=== PATIENT | male | born 1960 | race Two or more races ===

== ENCOUNTER 2016-04-25 13:52 | Emergency (ER) | payer MEDICARE, OTHER ==
[2016-04-25 15:19] VITALS: TEMP 98
[2016-04-25] MEDS ORDERED: LIDOCAINE/EPINEPHR/TETRACAINE 5 ML BOTTLE TOPICAL STA (15:41)
--- NOTE | 2016-04-25 16:09 | ED ---
General Adult HPI - General Chief complaint: Head Injury Stated complaint: Fall/Head Lac Time Seen by Provider: 04/25/16 15:33 Source: family, RN notes reviewed Mode of arrival: wheelchair Limitations: altered mental status - History of Present Illness Initial comments: Chief complaint history of present illness a 55-year-old mentally impaired male who tripped while going into a bowling alley now has a laceration approximately 1 cm over the inner left eyebrow. No reported loss of consciousness. He has not had any vomiting since the incident. No seizure activity. The patient is not at all cooperative. - Related Data Home Medications Medication Instructions Recorded Confirmed Ascorbic Acid [Vitamin C] 500 mg PO DAILY 04/25/16 04/25/16 Aspirin 81 mg PO DAILY 04/25/16 04/25/16 Cholecalciferol [Vitamin D3] 2,000 unit PO DAILY 04/25/16 04/25/16 EPINEPHrine (Auto Inject) [Epipen] 0.3 mg IM ONCE PRN 04/25/16 04/25/16 Gabapentin [Neurontin] 400 mg PO TID 04/25/16 04/25/16 Levothyroxine Sodium [Synthroid] 75 mcg PO DAILY 04/25/16 04/25/16 Polyethylene Glycol 3350 [Miralax] 17 gm PO DAILY PRN 04/25/16 04/25/16 Propylene Glycol/Peg 400/Pf 1 dropper BOTH EYES DAILY 04/25/16 04/25/16 [Systane 0.3-0.4% Eye Drops] Sennosides/Docusate Sodium [Dok 1 tab PO DAILY PRN 04/25/16 04/25/16 Plus Tablet] carBAMazepine [carBAMazepine ER] 200 mg PO TID 04/25/16 04/25/16 Allergies Allergy/AdvReac Type Severity Reaction Status Date / Time bee pollen Allergy Anaphylaxis Verified 04/25/16 15:39 Review of Systems ROS Statement: Those systems with pertinent positive or pertinent negative responses have been documented in the HPI. Review of systems. Limited because the patient is unable to answer in any meaningful way. But per care workers who know him well he has not had any significant change in the way normal days and then the fact that he has a laceration on his left eyebrow and does not like to be touched. Past medical problems pneumonia, seizure disorder, hypothyroidism. Significantly severe developmental delay with severe MR. ALLERGIES to bee pollen. No apparent surgical history. Family history unknown. ROS Other: All systems not noted in ROS Statement are negative. Past Medical History Past Medical History: Pneumonia, Seizure Disorder, Thyroid Disorder Additional Past Medical History / Comment(s): developmental delays, cerebral palsy History of Any Multi-Drug Resistant Organisms: None Reported Past Surgical History: No Surgical Hx Reported Past Psychological History: No Psychological Hx Reported Smoking Status: Never smoker Past Alcohol Use History: None Reported Past Drug Use History: None Reported General Exam - General Exam Comments Initial Comments: General: The patient is awake and alert, mentally challenged. Very difficult to examine because of his difficulties. He does present with once Amer laceration over the left eyebrow. Vital signs temp 98.0 pulse 63 respiratory 24 pulse ox 93% room air blood pressure 115/80. Eye: Pupils are equal, round and reactive to light, extra-ocular movements are intact ; there is normal conjunctiva bilaterally. No signs of icterus. Eye laceration , 1 cm over left eyebrow. Ears, nose, mouth and throat: There are moist mucous membranes . Neck: Neck appears supple. Patient otherwise does not answer questions Musculoskeletal: Normal ROM, no tenderness, There is no pedal edema. There is no calf tenderness or swelling. Moving all extremities. No evidence of any deformities. Neurological: Severely mentally challenged. In general poor coordination. Patient tripped healthcare workers at bedside another patient well states he appears to be normal to them neurologically. Limitations: altered mental status Course Vital Signs 04/25/16 15:11 Temperature 98.0 F Pulse Rate 63 Respiratory 24 Rate Blood Pressure 115/80 O2 Sat by Pulse 93 L Oximetry Procedures - Procedures Initial comment: Procedure; sterile technique. 1 cm laceration over left eyebrow. Area was cleaned with Betadine and normal saline. It was anesthetized with the use of LET. Good anesthetic effect was obtained. The patient was held still and 2 sutures were placed of 4-0 nylon simple pattern to close the wound with good hemostasis. Patient will have his tetanus updated. Sutures out in [address] Arana Disposition Clinical Impression: Laceration of face Disposition: HOME SELF-CARE Condition: Good Instructions: Laceration (ED) Additional Instructions: Return in 5 days for suture to remove. Report any acute mental changes. Time of Disposition: 16:27
[2016-04-25] MEDS ORDERED: DIPH,PERTUS(ACELL)TETVAC-LF 0.5 ML VIAL IM ONE (16:24)
[2016-04-25 16:50] VITALS: BP 134/79; PULSE 77; RESP 18
== END 2016-04-25 16:49 | disposition home or self-care (01) ==
LOC: EC 13:52
DX: S01.112A Laceration without foreign body of left eyelid and periocular area, initial encounter (principal); E07.9 Disorder of thyroid, unspecified; G40.909 Epilepsy, unspecified, not intractable, without status epilepticus; R62.50 Unspecified lack of expected normal physiological development in childhood; Z23 Encounter for immunization; Z87.01 Personal history of pneumonia (recurrent); Z79.82 Long term (current) use of aspirin; Z79.899 Other long term (current) drug therapy; Z91.030 Bee allergy status; W01.0XXA Fall on same level from slipping, tripping and stumbling without subsequent striking against object, initial encounter
CPT/HCPCS: 12011; 90471; 90715; 99283

== ENCOUNTER 2017-07-30 16:50 | Inpatient (IN) | payer MEDICARE, OTHER ==
[2017-07-30 17:00] LABS: Glucose,Whole Blood 75 mg/dL (75-99)
[2017-07-30] MEDS ORDERED: SODIUM CHLORIDE 0.9% 1,000 ML IV ONE ×2 (17:33→20:13)
[2017-07-30] MEDS ORDERED: ACETAMINOPHEN TAB 500 MG TAB PO STA (17:34)
[2017-07-30] MEDS ORDERED: IBUPROFEN 600 MG TAB PO STA (17:34)
--- NOTE | 2017-07-30 17:56 | ED ---
Altered Mental Status HPI - General Chief Complaint: Altered Mental Status Stated Complaint: SEIZURES Time Seen by Provider: 07/30/17 16:55 Source: EMS, RN notes reviewed, old records reviewed Mode of arrival: EMS Limitations: altered mental status - History of Present Illness Initial Comments: 57-year-old male with a history of cerebral palsy, seizure disorder, developmental delay, hyperlipidemia. Deformity and scoliosis. He presents today with history of gait disturbance and fever. Apparently patient was at his day program and was having difficulty ambulating. Patient normally does not need any help with walking but had to require 2 people to help him ambulate to the bus and throughout school today. The retail business analyst stated that he was not sitting up straight on the bus to return home. He returned to his adult care facility they noted that he was having the gait disturbances and was not responding to them is in his usual manner. Patient caregiver reports there was a history of influenza B at his day program the past week. They also noted that his urine has been dark. Patient is a poor historian. At this time patient's guardian reports that he is at baseline in regards to his mentation and speech. - Related Data Home Medications Medication Instructions Recorded Confirmed Ascorbic Acid [Vitamin C] 500 mg PO DAILY 04/25/16 07/30/17 Aspirin 81 mg PO DAILY 04/25/16 07/30/17 Cholecalciferol [Vitamin D3] 2,000 unit PO DAILY 04/25/16 07/30/17 EPINEPHrine (Auto Inject) [Epipen] 0.3 mg IM ONCE PRN 04/25/16 07/30/17 Gabapentin [Neurontin] 400 mg PO TID 04/25/16 07/30/17 Levothyroxine Sodium [Synthroid] 75 mcg PO DAILY 04/25/16 07/30/17 Polyethylene Glycol 3350 [Miralax] 17 gm PO DAILY 04/25/16 07/30/17 Propylene Glycol/Peg 400/Pf 1 dropper BOTH EYES DAILY 04/25/16 07/30/17 [Systane 0.3-0.4% Eye Drops] Betamethasone Dipropionate 1 applic TOPICAL DAILY PRN 07/30/17 07/30/17 [Diprolene AF 0.05% Cream] Escitalopram [Lexapro] 10 mg PO DAILY 07/30/17 07/30/17 LORazepam [Ativan] 0.5 mg PO BID PRN 07/30/17 07/30/17 carBAMazepine [TEGretol] 200 mg PO TID 07/30/17 07/30/17 Allergies Allergy/AdvReac Type Severity Reaction Status Date / Time bee pollen Allergy Anaphylaxis Verified 07/30/17 17:14 Review of Systems ROS Statement: Those systems with pertinent positive or pertinent negative responses have been documented in the HPI. ROS Other: All systems not noted in ROS Statement are negative. Past Medical History Past Medical History: Hyperlipidemia, Pneumonia, Seizure Disorder, Thyroid Disorder Additional Past Medical History / Comment(s): developmental delays, cerebral palsy, impulse control disorder, History of Any Multi-Drug Resistant Organisms: None Reported Past Surgical History: No Surgical Hx Reported Past Psychological History: No Psychological Hx Reported Smoking Status: Never smoker Past Alcohol Use History: None Reported Past Drug Use History: None Reported General Exam - General Exam Comments Initial Comments: 57-year-old male with history of cerebral palsy. Patient is reportedly at his baseline according to caregiver. He is not oriented to date and time and place. He continues to point to [place] and talks about golf. Limitations: altered mental status General appearance: in no apparent distress Head exam: Present: atraumatic, normocephalic, normal inspection Eye exam: Present: normal appearance, PERRL, EOMI. Absent: scleral icterus, conjunctival injection, periorbital swelling ENT exam: Present: normal exam, mucous membranes moist Neck exam: Present: normal inspection. Absent: tenderness, meningismus, lymphadenopathy Respiratory exam: Present: normal lung sounds bilaterally. Absent: respiratory distress, wheezes, rales, rhonchi, stridor Cardiovascular Exam: Present: regular rate, normal rhythm, normal heart sounds. Absent: systolic murmur, diastolic murmur, rubs, gallop, clicks GI/Abdominal exam: Present: soft, normal bowel sounds. Absent: distended, tenderness, guarding, rebound, rigid Extremities exam: Present: normal inspection, full ROM, normal capillary refill. Absent: tenderness, pedal edema, joint swelling, calf tenderness Back exam: Present: normal inspection Neurological exam: Present: alert, oriented X3, CN II-XII intact Psychiatric exam: Present: normal affect, normal mood Skin exam: Present: warm, dry, intact, normal color. Absent: rash Course Vital Signs 07/30/17 07/30/17 16:57 19:28 Temperature 103.1 F H 102.6 F H Pulse Rate 93 84 Respiratory 20 18 Rate Blood Pressure 140/76 106/60 O2 Sat by Pulse 100 Oximetry Medical Decision Making - Medical Decision Making 57-year-old male presents emergency Department via EMS with empty can services, fever, foul odor the urine. Patient was found to have urinary tract infection over 180 white blood cells in the urine. Given Levaquin. Lactic acid is normal. Blood culture obtained. White blood cell count elevated at 13,000. Patient meet sepsis criteria with fever 103, heart rate greater than 90. Given Motrin and Tylenol, 2 L bolus. Start on maintenance fluids. Patient will be admitted at this time for further evaluation. He does live in an adult [place] [facility]. Patient is a full code. Patient has returned to his normal mental status according to caregiver at this time. Computed tomography scan did show evidence of mild hydrocephalous. Unable to note this is related to old CTs. Does have a history of cerebral palsy and mental retardation. - Lab Data Result diagrams: 07/30/17 18:22 07/30/17 18:22 Lab Results 07/30/17 07/30/17 07/30/17 Range/Units 16:58 18:22 18:22 WBC 13.0 H (3.8-10.6) k/uL RBC 4.20 L (4.30-5.90) m/uL Hgb 13.2 (13.0-17.5) gm/dL Hct 38.5 L (39.0-53.0) % MCV 91.6 (80.0-100.0) fL MCH 31.4 (25.0-35.0) pg MCHC 34.3 (31.0-37.0) g/dL RDW 12.4 (11.5-15.5) % Plt Count 226 (150-450) k/uL Neutrophils % 90 % Lymphocytes % 3 % Monocytes % 5 % Eosinophils % 0 % Basophils % 0 % Neutrophils # 11.7 H (1.3-7.7) k/uL Lymphocytes # 0.4 L (1.0-4.8) k/uL Monocytes # 0.7 (0-1.0) k/uL Eosinophils # 0.0 (0-0.7) k/uL Basophils # 0.0 (0-0.2) k/uL PT (9.0-12.0) sec INR (<1.2) APTT (22.0-30.0) sec Sodium (137-145) mmol/L Potassium (3.5-5.1) mmol/L Chloride (98-107) mmol/L Carbon Dioxide (22-30) mmol/L Anion Gap mmol/L BUN (9-20) mg/dL Creatinine (0.66-1.25) mg/dL Est GFR (CKD-EPI)AfAm (>60 ml/min/1.73 sqM) Est GFR (CKD-EPI)NonAf (>60 ml/min/1.73 sqM) Glucose (74-99) mg/dL POC Glucose (mg/dL) 75 (75-99) mg/dL POC Glu Analytical Consultant ID Sangita Rodriguez Plasma Lactic Acid Radhames (0.7-2.0) mmol/L Calcium (8.4-10.2) mg/dL Total Bilirubin (0.2-1.3) mg/dL AST (17-59) U/L ALT (21-72) U/L Alkaline Phosphatase (38-126) U/L Total Creatine Kinase 84 (55-170) U/L CK-MB (CK-2) 0.6 (0.0-2.4) ng/mL CK-MB (CK-2) Rel Index 0.7 Troponin I <0.012 (0.000-0.034) ng/mL Total Protein (6.3-8.2) g/dL Albumin (3.5-5.0) g/dL Urine Color Urine Appearance (Clear) Urine pH (5.0-8.0) Ur Specific Antonito (1.001-1.035) Urine Protein (Negative) Urine Glucose (UA) (Negative) Urine Ketones (Negative) Urine Blood (Negative) Urine Nitrite (Negative) Urine Bilirubin (Negative) Urine Urobilinogen (<2.0) mg/dL Ur Leukocyte Esterase (Negative) Urine RBC (0-5) /hpf Urine WBC (0-5) /hpf Urine WBC Clumps (None) /hpf Ur Squamous Epith Cells (0-4) /hpf Amorphous Sediment (None) /hpf Urine Bacteria (None) /hpf Hyaline Casts (0-2) /lpf Urine Mucus (None) /hpf Influenza Type A RNA (Not Detectd) Influenza Type B (PCR) (Not Detectd) 07/30/17 07/30/17 07/30/17 Range/Units 18:22 18:22 18:22 WBC (3.8-10.6) k/uL RBC (4.30-5.90) m/uL Hgb (13.0-17.5) gm/dL Hct (39.0-53.0) % MCV (80.0-100.0) fL MCH (25.0-35.0) pg MCHC (31.0-37.0) g/dL RDW (11.5-15.5) % Plt Count (150-450) k/uL Neutrophils % % Lymphocytes % % Monocytes % % Eosinophils % % Basophils % % Neutrophils # (1.3-7.7) k/uL Lymphocytes # (1.0-4.8) k/uL Monocytes # (0-1.0) k/uL Eosinophils # (0-0.7) k/uL Basophils # (0-0.2) k/uL PT 9.7 (9.0-12.0) sec INR 1.0 (<1.2) APTT 22.5 (22.0-30.0) sec Sodium 139 (137-145) mmol/L Potassium 3.9 (3.5-5.1) mmol/L Chloride 97 L (98-107) mmol/L Carbon Dioxide 28 (22-30) mmol/L Anion Gap 14 mmol/L BUN 10 (9-20) mg/dL Creatinine 0.70 (0.66-1.25) mg/dL Est GFR (CKD-EPI)AfAm >90 (>60 ml/min/1.73 sqM) Est GFR (CKD-EPI)NonAf >90 (>60 ml/min/1.73 sqM) Glucose 116 H (74-99) mg/dL POC Glucose (mg/dL) (75-99) mg/dL POC Glu Analytical Consultant ID Plasma Lactic Acid Radhames (0.7-2.0) mmol/L Calcium 8.8 (8.4-10.2) mg/dL Total Bilirubin 0.3 (0.2-1.3) mg/dL AST 17 (17-59) U/L ALT 18 L (21-72) U/L Alkaline Phosphatase 103 (38-126) U/L Total Creatine Kinase (55-170) U/L CK-MB (CK-2) (0.0-2.4) ng/mL CK-MB (CK-2) Rel Index Troponin I (0.000-0.034) ng/mL Total Protein 7.2 (6.3-8.2) g/dL Albumin 4.1 (3.5-5.0) g/dL Urine Color Urine Appearance (Clear) Urine pH (5.0-8.0) Ur Specific Antonito (1.001-1.035) Urine Protein (Negative) Urine Glucose (UA) (Negative) Urine Ketones (Negative) Urine Blood (Negative) Urine Nitrite (Negative) Urine Bilirubin (Negative) Urine Urobilinogen (<2.0) mg/dL Ur Leukocyte Esterase (Negative) Urine RBC (0-5) /hpf Urine WBC (0-5) /hpf Urine WBC Clumps (None) /hpf Ur Squamous Epith Cells (0-4) /hpf Amorphous Sediment (None) /hpf Urine Bacteria (None) /hpf Hyaline Casts (0-2) /lpf Urine Mucus (None) /hpf Influenza Type A RNA Not Detected (Not Detectd) Influenza Type B (PCR) Not Detected (Not Detectd) 07/30/17 07/30/17 Range/Units 18:22 19:57 WBC (3.8-10.6) k/uL RBC (4.30-5.90) m/uL Hgb (13.0-17.5) gm/dL Hct (39.0-53.0) % MCV (80.0-100.0) fL MCH (25.0-35.0) pg MCHC (31.0-37.0) g/dL RDW (11.5-15.5) % Plt Count (150-450) k/uL Neutrophils % % Lymphocytes % % Monocytes % % Eosinophils % % Basophils % % Neutrophils # (1.3-7.7) k/uL Lymphocytes # (1.0-4.8) k/uL Monocytes # (0-1.0) k/uL Eosinophils # (0-0.7) k/uL Basophils # (0-0.2) k/uL PT (9.0-12.0) sec INR (<1.2) APTT (22.0-30.0) sec Sodium (137-145) mmol/L Potassium (3.5-5.1) mmol/L Chloride (98-107) mmol/L Carbon Dioxide (22-30) mmol/L Anion Gap mmol/L BUN (9-20) mg/dL Creatinine (0.66-1.25) mg/dL Est GFR (CKD-EPI)AfAm (>60 ml/min/1.73 sqM) Est GFR (CKD-EPI)NonAf (>60 ml/min/1.73 sqM) Glucose (74-99) mg/dL POC Glucose (mg/dL) (75-99) mg/dL POC Glu Analytical Consultant ID Plasma Lactic Acid Radhames 1.5 (0.7-2.0) mmol/L Calcium (8.4-10.2) mg/dL Total Bilirubin (0.2-1.3) mg/dL AST (17-59) U/L ALT (21-72) U/L Alkaline Phosphatase (38-126) U/L Total Creatine Kinase (55-170) U/L CK-MB (CK-2) (0.0-2.4) ng/mL CK-MB (CK-2) Rel Index Troponin I (0.000-0.034) ng/mL Total Protein (6.3-8.2) g/dL Albumin (3.5-5.0) g/dL Urine Color Yellow Urine Appearance Cloudy (Clear) Urine pH 7.5 (5.0-8.0) Ur Specific Antonito 1.013 (1.001-1.035) Urine Protein 1+ H (Negative) Urine Glucose (UA) Negative (Negative) Urine Ketones Negative (Negative) Urine Blood Small H (Negative) Urine Nitrite Negative (Negative) Urine Bilirubin Negative (Negative) Urine Urobilinogen <2.0 (<2.0) mg/dL Ur Leukocyte Esterase Moderate H (Negative) Urine RBC 18 H (0-5) /hpf Urine WBC 109 H (0-5) /hpf Urine WBC Clumps Few H (None) /hpf Ur Squamous Epith Cells 1 (0-4) /hpf Amorphous Sediment Few H (None) /hpf Urine Bacteria Many H (None) /hpf Hyaline Casts 1 (0-2) /lpf Urine Mucus Rare H (None) /hpf Influenza Type A RNA (Not Detectd) Influenza Type B (PCR) (Not Detectd) 07/30/17 18:05 EKG shows normal sinus rhythm normal EKG. Ventricular rate of 89 bpm. MS interval is 128 ms. QRS duration is 94. 364/442 ms. - Radiology Data Radiology results: report reviewed No acute intracranial hemorrhage or midline shift seen. They suspected mild hydrocephalus in mild to moderate nonspecific white matter changes likely on the basis of chronic small vessel ischemic change. Correlation with old outside CT or MRI would be beneficial. Chest x-rays negative for any acute process. Disposition Clinical Impression: UTI (urinary tract infection), Sepsis, Cerebral palsy, Mental retardation, Gait disturbance Disposition: HOME SELF-CARE Condition: Good Is patient prescribed a controlled substance at d/c from ED?: No If prescribed controlled substance>3 days was MAPS reviewed?: No When asked, does pt state using other controlled substances?: No Referrals: Gilberto Turk MD [Primary Care Provider] - 1-2 days
[2017-07-30] MEDS: SODIUM CHLORIDE 0.9% 1,000 ML IV ONE ×2 (18:26→22:57)
[2017-07-30 18:35] LABS: Basophils % (A) 0 %; Eosinophils % (A) 0 %; HCT 38.5 % (39.0-53.0); HGB 13.2 gm/dL (13.0-17.5); Lymphocytes # (A) 0.4 k/uL (1.0-4.8); Lymphocytes % (A) 3 %; MCH 31.4 pg (25.0-35.0); MCHC 34.3 g/dL (31.0-37.0); MCV 91.6 fL (80.0-100.0); Mean Platelet Volume 7.5; Monocytes # (A) 0.7 k/uL (0-1.0); Monocytes % (A) 5 %; Neutrophils # (A) 11.7 k/uL (1.3-7.7); Neutrophils % (A) 90 %; Platelet Count 226 k/uL (150-450); RDW 12.4 % (11.5-15.5)
[2017-07-30 18:45] LABS: Partial Thromboplastin Time 22.5 sec (22.0-30.0); Prothrombin Time 9.7 sec (9.0-12.0)
[2017-07-30 18:47] LABS: ALT 18 U/L (21-72); AST 17 U/L (17-59); Albumin 4.1 g/dL (3.5-5.0); Alkaline Phosphatase 103 U/L (38-126); Anion Gap 14 mmol/L; Blood Urea Nitrogen 10 mg/dL (9-20); Calcium 8.8 mg/dL (8.4-10.2); Carbon Dioxide 28 mmol/L (22-30); Chloride 97 mmol/L (98-107); Glucose 116 mg/dL (74-99); Potassium 3.9 mmol/L (3.5-5.1); Sodium 139 mmol/L (137-145); Total Bilirubin 0.3 mg/dL (0.2-1.3); Total Protein 7.2 g/dL (6.3-8.2)
[2017-07-30 18:58] LABS: Creatine Kinase 84 U/L (55-170)
[2017-07-30 19:11] LABS: Creatine Kinase MB 0.6 ng/mL (0.0-2.4); Troponin I <0.012 ng/mL (0.000-0.034)
--- NOTE | 2017-07-30 19:17 | CT ---
EXAMINATION TYPE: CT brain wo con DATE OF EXAM: 07/30/2017 HISTORY: Seizure CT DLP: 883.2 mGycm. Automated Exposure Control for Dose Reduction was Utilized. TECHNIQUE: CT scan of the head is performed without contrast. COMPARISON: None. FINDINGS: There is no acute intracranial hemorrhage or midline shift identified. There is slight pr ominence of ventricular system out of proportion to degree of sulcal effacement. Fourth ventricle is not dilated. There is low-attenuation in the periventricular white matter consistent with chronic sma ll vessel ischemic change. Prominent Soft tissue density deep bilateral expiratory canals likely refl ects cerumen. Correlate clinically. The globes are intact and the visualized sinuses are clear. IMPRESSION: No acute intracranial hemorrhage or midline shift. There is suspected mild hydrocephalu s and mild to moderate nonspecific white matter changes likely on basis of product of chronic small v essel ischemic change. Correlation with old outside CT or MRI would be beneficial.
--- NOTE | 2017-07-30 19:18 | XR ---
EXAMINATION TYPE: XR chest 2V DATE OF EXAM: 07/30/2017 COMPARISON: NONE HISTORY: Altered mental status and weakness. TECHNIQUE: Frontal and lateral views of the chest are obtained. FINDINGS: Elevated left hemidiaphragm is present. There is no focal air space opacity, pleural effusi on, or pneumothorax seen. The cardiac silhouette size is within normal limits. Underlying scoliosis is seen. IMPRESSION: No acute cardiopulmonary process.
[2017-07-30] MEDS ORDERED: LEVOFLOXACIN 750MG-D5W PMX 750 MG in DEXTROSE/WATER 1 150ML.BAG IVPB STA (19:56)
[2017-07-30 20:19] LABS: Amorphous Sediment,Urine Few /hpf; Appearance,Urine Cloudy (Clear); Bacteria,Urine Many /hpf; Bilirubin,Urine Negative (Negative); Blood,Urine Small (Negative); Color,Urine Yellow; Glucose,Urine (UA) Negative (Negative); Hyaline Casts,Urine 1 /lpf (0-2); Ketones,Urine Negative (Negative); Leukocyte Esterase,Urine Moderate (Negative); Mucus,Urine Rare /hpf; Nitrite,Urine Negative (Negative); PH, Urine 7.5 (5.0-8.0); Protein,Urine 1+ (Negative); RBC,Urine 18 /hpf (0-5); Specific Gravity,Urine 1.013 (1.001-1.035); Squamous Epithelial Cell,Urine 1 /hpf (0-4); Urobilinogen,Urine <2.0 mg/dL (<2.0); WBC,Urine 109 /hpf (0-5)
[2017-07-30] MEDS ORDERED: ACETAMINOPHEN TAB 325 MG TAB PO PRN (20:29)
[2017-07-30] MEDS ORDERED: NALOXONE 0.4 MG/ML 1 ML VIAL IV PRN (20:29)
[2017-07-30] MEDS ORDERED: IBUPROFEN 400 MG TAB PO PRN (20:29)
[2017-07-30] MEDS ORDERED: KETOROLAC 30 MG/ML 1 ML VIAL IVP PRN (20:29)
[2017-07-30] MEDS ORDERED: BETAMETHASONE DIPROPIONATE 0.05% CREAM 15 GM TUBE TOPICAL PRN (20:37)
[2017-07-30] MEDS ORDERED: LORazepam 0.5 MG TAB PO PRN (20:37)
[2017-07-30 21:41] VITALS: BMI 19.3
[2017-07-30] MEDS: GABAPENTIN 400 MG CAP PO SCH (22:56)
[2017-07-30] MEDS: carBAMazepine 200 MG TAB PO SCH (22:56)
[2017-07-30] MEDS: SODIUM CHLORIDE 0.9% 1,000 ML IV SCH (23:09)
[2017-07-31] MEDS: SODIUM CHLORIDE 0.9% 1,000 ML IV SCH ×3 (04:27→22:47)
[2017-07-31] MEDS: PANTOPRAZOLE 40 MG/10 ML VIAL IV SCH (09:22)
[2017-07-31] MEDS: cefTRIAXone IN SWFI 1,000 MG/10 ML SYRINGE IVP SCH (09:23)
[2017-07-31] MEDS: POLYETHYLENE GLYCOL 3350 17 GM POWD.PACK PO SCH (09:23)
[2017-07-31] MEDS: GABAPENTIN 400 MG CAP PO SCH ×3 (09:23→20:10)
[2017-07-31] MEDS: ASPIRIN 81 MG PO SCH (09:24)
[2017-07-31] MEDS: carBAMazepine 200 MG TAB PO SCH ×3 (09:24→20:10)
[2017-07-31] MEDS: CHOLECALCIFEROL 1,000 UNIT TAB PO SCH (09:24)
[2017-07-31] MEDS: LEVOTHYROXINE 75 MCG TAB PO SCH (09:25)
[2017-07-31] MEDS: ASCORBIC ACID 500 MG TAB PO SCH (09:25)
[2017-07-31] MEDS: ESCITALOPRAM 10 MG TAB PO SCH (09:25)
--- NOTE | 2017-07-31 10:28 | US ---
EXAMINATION TYPE: US kidneys/renal and bladder DATE OF EXAM: 07/31/2017 COMPARISON: NONE CLINICAL HISTORY: Pain. EXAM MEASUREMENTS: Right Kidney: 10.7 x 5.4 x 4.5 cm Left Kidney: 11.5 x 4.7 x 4.7 cm Patient has cerebral palsy and is intellectually disabled. He was uncooperative with examiner. Limite d evaluation due to technical difficulties. Incidental finding of gallstones. Right Kidney: portion of mid and entire inferior pole obscured by bowel gas Left Kidney: Inferior pole obscured by bowel gas Bladder: diverticulum noted, dependant debris also noted Bilateral Jets seen: unable to see jets due to patient movement There is no evidence for hydronephrosis at this point in time. No nephrolithiasis is seen. No melida s are identified. The urinary bladder Demonstrates dependent debris as well as diverticulum. IMPRESSION: 1.The urinary bladder Demonstrates dependent debris as well as diverticulum.
[2017-07-31] MEDS: ARTIFICIAL TEARS-HYPROMELLOSE DROPS 15 ML BTL BOTH EYES SCH (12:15)
--- NOTE | 2017-07-31 13:48 | P.HPIM ---
History of Present Illness H&P Date: 07/31/17 Chief Complaint: Mental status change This is a 57-year-old gentleman with known cerebral palsy seizure disorder hypothyroidism hyperlipidemia and has significant impairment in intellect and communication skills, admitted to emergency room secondary to mental status changes. Not much is known regarding falls or appetite or seizures and comes in from jail,. He was febrile in the ER. He comes from adult foster care facility when he was noted to have less interaction, dark urine. Per guardian speech and mentation are at baseline. According to staff, she was treated with influenza B a week prior to admission In the emergency room, urinalysis was positive for pyuria, bladder ultrasound shows no hydronephrosis stones no masses, bladder demonstrate dependent debris as well as diverticulum CAT scan of the brain shows mild hydrocephalus, chronic ischemic change the comparison for review, chest x-ray shows elevated left hemidiaphragm, no focal airspace disease pleural effusion or pneumothorax, no cardiomegaly, scoliosis noted EKG shows normal sinus rhythm normal EKG. Laboratories WBC of 13.0 CO2 of 28 normal creatinine of 0.7 sodium 139 influenza test negative. T-max in the ER 103.1 Review of Systems ROS unobtainable: due to mental status Constitutional: Reports as per HPI Ears, nose, mouth and throat: Reports as per HPI Cardiovascular: Reports as per HPI Respiratory: Reports as per HPI Gastrointestinal: Reports as per HPI Genitourinary: Reports as per HPI Musculoskeletal: Reports as per HPI Neurological: Reports as per HPI, Reports gait dysfunction, Denies aphasia, Denies ataxia, Denies balance difficulties, Denies burning pain, Denies change in mentation, Denies change in smell/taste, Denies change in speech, Denies confusion, Denies convulsions, Denies double vision, Denies head injury, Denies headaches, Denies hearing difficulties, Denies lack of coordination, Denies loss of vision, Denies memory loss, Denies migraines, Denies motor disturbance, Denies numbness, Denies paralysis, Denies paresthesias, Denies seizures, Denies sensory deficit, Denies spasticity, Denies syncope, Denies tic, Denies tingling , Denies transient paralysis, Denies tremors, Denies vertigo, Denies weakness, Denies visual changes Psychiatric: Reports as per HPI, Denies anhedonia, Denies anxiety, Denies anxiety attacks, Denies change in appetite, Denies change in libido, Denies change in sleep habits, Denies confusion, Denies depression, Denies difficulty concentrating, Denies disorientation, Denies hallucinations, Denies hopelessness , Denies hypersomnia, Denies insomnia, Denies irritability, Denies memory loss, Denies mood swings, Denies paranoia, Denies sadness/tearfulness, Denies sleep disturbances, Denies suicidal ideation Endocrine: Reports as per HPI, Denies cold intolerance, Denies deepening of the voice, Denies excessive sweating, Denies excessive thirst, Denies fatigue, Denies flushing, Denies heat intolerance, Denies high blood sugars, Denies increase in ring/shoe/hat size, Denies low blood sugars, Denies nocturia, Denies palpitations, Denies polydipsia, Denies polyphagia, Denies polyuria, Denies proptosis, Denies recent glucocorticoid use, Denies thyroid mass, Denies weight change Hematologic/Lymphatic: Reports as per HPI Allergic/Immunologic: Reports as per HPI, Denies allergic rhinitis, Denies anaphylaxis, Denies angioedema, Denies gluten intolerance, Denies persistent infections, Denies seasonal allergies, Denies urticaria, Denies wheezing Past Medical History Past Medical History: Hyperlipidemia, Musculoskeletal Disorder, Pneumonia, Seizure Disorder, Skin Disorder, Thyroid Disorder Additional Past Medical History / Comment(s): developmental delays, cerebral palsy, impulse control disorder, Dermatitis, varus deformity, Last seizure was September 15, 2015, photosensitivity from medications, Dental work under sedation, seborrheic ketosis, gait disturbance, Pes Cavus, [place] [facility], Scoliosis, Peridontitis. History of Any Multi-Drug Resistant Organisms: None Reported Past Surgical History: Bowel Resection Additional Past Surgical History / Comment(s): Colonoscopy 2013, 2017. Laparoscopy of colon 2013, 2016 Past Anesthesia/Blood Transfusion Reactions: No Reported Reaction Past Psychological History: No Psychological Hx Reported Smoking Status: Never smoker Past Alcohol Use History: None Reported Past Drug Use History: None Reported - Past Family History Father Family Medical History: No Reported History Additional Family Medical History / Comment(s): No signigicant history reported by jail staff member Medications and Allergies Home Medications Medication Instructions Recorded Confirmed Type Ascorbic Acid [Vitamin C] 500 mg PO DAILY 04/25/16 07/30/17 History Aspirin 81 mg PO DAILY 04/25/16 07/30/17 History Cholecalciferol [Vitamin D3] 2,000 unit PO DAILY 04/25/16 07/30/17 History EPINEPHrine (Auto Inject) [Epipen] 0.3 mg IM ONCE PRN 04/25/16 07/30/17 History Gabapentin [Neurontin] 400 mg PO TID 04/25/16 07/30/17 History Levothyroxine Sodium [Synthroid] 75 mcg PO DAILY 04/25/16 07/30/17 History Polyethylene Glycol 3350 [Miralax] 17 gm PO DAILY 04/25/16 07/30/17 History Propylene Glycol/Peg 400/Pf 1 dropper BOTH EYES DAILY 04/25/16 07/30/17 History [Systane 0.3-0.4% Eye Drops] Betamethasone Dipropionate 1 applic TOPICAL DAILY PRN 07/30/17 07/30/17 History [Diprolene AF 0.05% Cream] Escitalopram [Lexapro] 10 mg PO DAILY 07/30/17 07/30/17 History LORazepam [Ativan] 0.5 mg PO BID PRN 07/30/17 07/30/17 History carBAMazepine [TEGretol] 200 mg PO TID 07/30/17 07/30/17 History Allergies Allergy/AdvReac Type Severity Reaction Status Date / Time bee pollen Allergy Anaphylaxis Verified 07/30/17 17:14 Physical Exam Vitals: Vital Signs Temp Pulse Pulse Resp BP BP Pulse Ox 07/31/17 08:20 98.4 F 97 16 98/57 96 07/31/17 00:44 97.6 F 72 16 101/59 98 07/30/17 21:13 98.6 F 83 16 102/64 100 07/30/17 20:54 98.8 F 64 18 99/57 98 07/30/17 19:28 102.6 F H 84 18 106/60 99 07/30/17 16:57 103.1 F H 93 20 140/76 100 Intake and Output 07/30/17 07/31/17 07/31/17 22:59 06:59 14:59 Intake Total 800 100 Balance 800 100 Intake: Intake, IV Titration 800 Amount Sodium Chloride 0.9% 1, 800 000 ml @ 120 mls/hr IV . Q8H20M [facility] Rx#:[id number] Oral 100 Other: # Voids 2 Weight 54.43 kg - Constitutional General appearance: cooperative, no acute distress - EENT Eyes: anicteric sclerae, EOMI, PERRLA, dentition normal, normal appearance ENT: NA/AT, normal oropharynx - Neck Neck: no lymphadenopathy, normal ROM, no other, no rigidity, no stridor, no thyromegaly - Respiratory Respiratory: bilateral: CTA, negative: diminished, dullness, rales - Cardiovascular Rhythm: regular Heart sounds: normal: S1, S2 Abnormal Heart Sounds: no systolic murmur, no diastolic murmur, no rub, no S3 Gallop, no S4 Gallop, no click, no other - Gastrointestinal General gastrointestinal: normal bowel sounds, soft - Integumentary Integumentary: decreased turgor, normal - Neurologic Neurologic: CNII-XII intact - Musculoskeletal Musculoskeletal: strength equal bilaterally - Psychiatric Psychiatric: appropriate affect Results CBC & Chem 7: 07/30/17 18:22 07/30/17 18:22 Labs: Abnormal Lab Results - Last 24 Hours (Table) 07/30/17 07/30/17 07/30/17 Range/Units 18:22 18:22 19:57 WBC 13.0 H (3.8-10.6) k/uL RBC 4.20 L (4.30-5.90) m/uL Hct 38.5 L (39.0-53.0) % Neutrophils # 11.7 H (1.3-7.7) k/uL Lymphocytes # 0.4 L (1.0-4.8) k/uL Chloride 97 L (98-107) mmol/L Glucose 116 H (74-99) mg/dL ALT 18 L (21-72) U/L Urine Protein 1+ H (Negative) Urine Blood Small H (Negative) Ur Leukocyte Esterase Moderate H (Negative) Urine RBC 18 H (0-5) /hpf Urine WBC 109 H (0-5) /hpf Urine WBC Clumps Few H (None) /hpf Amorphous Sediment Few H (None) /hpf Urine Bacteria Many H (None) /hpf Urine Mucus Rare H (None) /hpf Microbiology - Last 24 Hours (Table) 07/30/17 Unknown Urine Culture - Preliminary Urine,Catheterized Laboratory Results WBC 13.0 k/uL (3.8-10.6) H 07/30/17 18: RBC 4.20 m/uL (4.30-5.90) L 07/30/17: Hgb 13.2 gm/dL (13.0-17.5) 07/30/17: Hct 38.5 % (39.0-53.0) L 07/30/17: MCV 91.6 fL (80.0-100.0) 07/30/17: MCH 31.4 pg (25.0-35.0) 07/30/17 MCHC 34.3 g/dL (31.0-37.0) 07/30/17 RDW 12.4 % (11.5-15.5) 07/30/17 Plt Count 226 k/uL (150-450) 07/30/17: Neutrophils % 90 % 07/30/17 18: Lymphocytes % 3 % 07/30/17: Monocytes % 5 % 07/30/17: Eosinophils % 0 % 07/30/17: Basophils % 0 % 07/30/17: Neutrophils # 11.7 k/uL (1.3-7.7) H 07/30/17: Lymphocytes # 0.4 k/uL (1.0-4.8) L 07/30/17: Monocytes # 0.7 k/uL (0-1.0) 07/30/17: Eosinophils # 0.0 k/uL (0-0.7) 07/30/17: Basophils # 0.0 k/uL (0-0.2) 07/30/17: PT 9.7 sec (9.0-12.0) 07/30/17: INR 1.0 (<1.2) 07/30/17: APTT 22.5 sec (22.0-30.0) 07/30/17 18: Sodium 139 mmol/L (137-145) 07/30/17 18: Potassium 3.9 mmol/L (3.5-5.1) 07/30/17: Chloride 97 mmol/L (98-107) L 05/10/18 18:22 Carbon Dioxide 28 mmol/L (22-30) 07/30/17 18:22 Anion Gap 14 mmol/L 07/30/17 18:22 BUN 10 mg/dL (9-20) 07/30/17 18:22 Creatinine 0.70 mg/dL (0.66-1.25) 07/30/17 18:22 Est GFR (CKD-EPI)AfAm >90 (>60 ml/min/1.73 sqM) 07/30/17 18:22 Est GFR (CKD-EPI)NonAf >90 (>60 ml/min/1.73 sqM) 07/30/17 18:22 Glucose 116 mg/dL (74-99) H 07/30/17 18:22 POC Glucose (mg/dL) 75 mg/dL (75-99) 07/30/17 16:58 POC Glu Director Of Communications ID Sangita Rodriguez 07/30/17 16:58 Plasma Lactic Acid Radhames 1.5 mmol/L (0.7-2.0) 07/30/17 18: Calcium 8.8 mg/dL (8.4-10.2) 07/30/17 18: Total Bilirubin 0.3 mg/dL (0.2-1.3) 07/30/17 18:22 AST 17 U/L (17-59) 07/30/17 18: ALT 18 U/L (21-72) L 07/30/17 18: Alkaline Phosphatase 103 U/L (38-126) 07/30/17 18: Total Creatine Kinase 84 U/L (55-170) 07/30/17 18: CK-MB (CK-2) 0.6 ng/mL (0.0-2.4) 07/30/17 18: CK-MB (CK-2) Rel Index 0.7 07/30/17 18: Troponin I <0.012 ng/mL (0.000-0.034) 07/30/17 18: Total Protein 7.2 g/dL (6.3-8.2) 07/30/17 18: Albumin 4.1 g/dL (3.5-5.0) 07/30/17 18:22 Urine Color Yellow 07/30/17 19:57 Urine Appearance Cloudy (Clear) 07/30/17 19:57 Urine pH 7.5 (5.0-8.0) 07/30/17 19:57 Ur Specific [place] 1.013 (1.001-1.035) 07/30/17 19:57 Urine Protein 1+ (Negative) H 07/30/17 19:57 Urine Glucose (UA) Negative (Negative) 07/30/17 19:57 Urine Ketones Negative (Negative) 07/30/17 19:57 Urine Blood Small (Negative) H 07/30/17 19:57 Urine Nitrite Negative (Negative) 07/30/17 19:57 Urine Bilirubin Negative (Negative) 07/30/17 19:57 Urine Urobilinogen <2.0 mg/dL (<2.0) 07/30/17 19:57 Ur Leukocyte Esterase Moderate (Negative) H 07/30/17 19:57 Urine RBC 18 /hpf (0-5) H 07/30/17 19:57 Urine WBC 109 /hpf (0-5) H 07/30/17 19:57 Urine WBC Clumps Few /hpf (None) H 07/30/17 19:57 Ur Squamous Epith Cells 1 /hpf (0-4) 07/30/17 19:57 Amorphous Sediment Few /hpf (None) H 07/30/17 19:57 Urine Bacteria Many /hpf (None) H 07/30/17 19:57 Hyaline Casts 1 /lpf (0-2) 07/30/17 19:57 Urine Mucus Rare /hpf (None) H 07/30/17 19:57 Influenza Type A RNA Not Detected (Not Detectd) 07/30/17 18:22 Influenza Type B (PCR) Not Detected (Not Detectd) 07/30/17 18:22 Thrombosis Risk Factor Assmnt - DVT/VTE Prophylaxis DVT/VTE Prophylaxis: Mechanical Prophylaxis ordered, Low risk, early ambulation encouraged - Choose All That Apply Any of the Below Risk Factors Present?: Yes Each Factor Represents 1 point: Age 41-60 years Thrombosis Risk Factor Assessment Total Risk Factor Score: 1 Thrombosis Risk Factor Assessment Level: Low Risk Assessment and Plan Plan: 1. acute urinary tract infections with acute metabolic encephalopathy, leukocytosis, and fever. SIRS is suspected, patient would be started and IV antibiotics Levaquin, blood cultures were obtained, negative for bladder and kidney ultrasound for stones. No hydronephrosis. Patient would be screened with a PSA, cannot rule out underlying prostatism. IV Rocephin, discontinue IV Levaquin 2. Cerebral palsy with impulse control disorder with intellectual and communication difficulties, ration requires feeding with assistance when seen, and supervised walking however is independent with walks 3. Seizure disorder on maintenance Tegretol, last seizure August 2015 4. Thyroid disorder, thyroid function test will be obtained related to mental status changes and weakness levothyroxine 75 g daily 5. hyperlipidemia not on any statin 6. Skin disorder with seborrheic keratosis on the betamethasone daily when necessary 7. Impulse control disorder on Lexapro Tegretol 200 3 times a day 8. GI prophylaxis Protonix will change to by mouth Pepcid 9. DVT prophylaxis early ambulation low risk 10. Discharge planning return to jail 11. BPH with L UTS, PSA to be obtained, monitor for urinary retention, no current problems for urinary retention 12. Bladder diverticulum 13 vMild hydrocephalus on routine CT, follow up with his neurologist as an outpatient Expected length of stay 2 nights pending blood cultures and clinical response antibiotics
[2017-07-31] MEDS ORDERED: LEVOFLOXACIN 750MG-D5W PMX 750 MG in DEXTROSE/WATER 1 150ML.BAG IVPB SCH (21:00)
[2017-08-01] MEDS: cefTRIAXone IN SWFI 1,000 MG/10 ML SYRINGE IVP SCH (09:43)
[2017-08-01] MEDS: LEVOTHYROXINE 75 MCG TAB PO SCH (09:44)
[2017-08-01] MEDS: ASPIRIN 81 MG PO SCH (09:44)
[2017-08-01] MEDS: GABAPENTIN 400 MG CAP PO SCH ×3 (09:44→21:30)
[2017-08-01] MEDS: ASCORBIC ACID 500 MG TAB PO SCH (09:44)
[2017-08-01] MEDS: ESCITALOPRAM 10 MG TAB PO SCH (09:44)
[2017-08-01] MEDS: PANTOPRAZOLE 40 MG/10 ML VIAL IV SCH (09:45)
[2017-08-01] MEDS: carBAMazepine 200 MG TAB PO SCH ×3 (09:45→21:29)
[2017-08-01] MEDS: POLYETHYLENE GLYCOL 3350 17 GM POWD.PACK PO SCH (09:47)
[2017-08-01] MEDS: SODIUM CHLORIDE 0.9% 1,000 ML IV SCH ×3 (11:40→22:05)
[2017-08-01] MEDS: ARTIFICIAL TEARS-HYPROMELLOSE DROPS 15 ML BTL BOTH EYES SCH (11:41)
[2017-08-01] MEDS: CHOLECALCIFEROL 1,000 UNIT TAB PO SCH (11:47)
[2017-08-01] MEDS: ONDANSETRON 4 MG/2 ML VIAL IVP PRN ×2 (13:23→13:37)
[2017-08-01 14:15] LABS: Basophils % (A) 0 %; Eosinophils # (A) 0.1 k/uL (0-0.7); Eosinophils % (A) 1 %; HCT 32.1 % (39.0-53.0); HGB 10.4 gm/dL (13.0-17.5); Lymphocytes # (A) 0.4 k/uL (1.0-4.8); Lymphocytes % (A) 4 %; MCH 30.8 pg (25.0-35.0); MCHC 32.4 g/dL (31.0-37.0); MCV 94.9 fL (80.0-100.0); Monocytes # (A) 0.5 k/uL (0-1.0); Monocytes % (A) 5 %; Neutrophils # (A) 8.7 k/uL (1.3-7.7); Neutrophils % (A) 90 %; Platelet Count 142 k/uL (150-450); RBC 3.38 m/uL (4.30-5.90); RDW 12.8 % (11.5-15.5); WBC 9.7 k/uL (3.8-10.6)
[2017-08-01 14:17] LABS: ALT 29 U/L (21-72); AST 19 U/L (17-59); Albumin 2.7 g/dL (3.5-5.0); Alkaline Phosphatase 72 U/L (38-126); Anion Gap 11 mmol/L; Blood Urea Nitrogen 9 mg/dL (9-20); Calcium 7.9 mg/dL (8.4-10.2); Carbon Dioxide 21 mmol/L (22-30); Chloride 106 mmol/L (98-107); Glucose 90 mg/dL (74-99); Potassium 3.6 mmol/L (3.5-5.1); Sodium 138 mmol/L (137-145); Total Bilirubin 0.2 mg/dL (0.2-1.3); Total Protein 5.3 g/dL (6.3-8.2)
--- NOTE | 2017-08-01 14:30 | XR ---
EXAMINATION TYPE: XR abdomen 1V DATE OF EXAM: 08/01/2017 COMPARISON: NONE HISTORY: Ileus. Abdominal pain. TECHNIQUE: Single view FINDINGS: There is no sign of intestinal obstruction or pneumoperitoneum. Fecal pattern is normal. Th ere are surgical clips in the left mid abdomen. I see no sign of a mass. IMPRESSION: Nonacute abdomen.
[2017-08-01 14:52] VITALS: RESP 16
--- NOTE | 2017-08-01 17:31 | P.PN ---
Subjective Progress Note Date: 08/01/17 This is a 57-year-old gentleman with known cerebral palsy seizure disorder hypothyroidism hyperlipidemia and has significant impairment in intellect and communication skills, admitted to emergency room secondary to mental status changes. Not much is known regarding falls or appetite or seizures and comes in from [facility],. He was febrile in the ER. He comes from adult foster care facility when he was noted to have less interaction, dark urine. Per guardian speech and mentation are at baseline. According to staff, she was treated with influenza B a week prior to admission In the emergency room, urinalysis was positive for pyuria, bladder ultrasound shows no hydronephrosis stones no masses, bladder demonstrate dependent debris as well as diverticulum CAT scan of the brain shows mild hydrocephalus, chronic ischemic change the comparison for review, chest x-ray shows elevated left hemidiaphragm, no focal airspace disease pleural effusion or pneumothorax, no cardiomegaly, scoliosis noted EKG shows normal sinus rhythm normal EKG. Laboratories WBC of 13.0 CO2 of 28 normal creatinine of 0.7 sodium 139 influenza test negative. T-max in the ER 103. 5/12 patient assessment for it. Is unable to comprehend his discomfort but does appears anxious. He had 1 episode of vomiting this morning. On clear liquid diet. Continue Rocephin. Objective - Vital Signs Vital signs: Vital Signs Temp 100.2 F H 08/01/17 14:10 Pulse 81 08/01/17 14:10 Resp 16 08/01/17 14:10 BP 99/61 08/01/17 14:10 Pulse Ox 98 08/01/17 14:10 Intake & Output 07/31/17 08/01/17 08/01/17 18:59 06:59 18:59 Intake Total 1260 1380 340 Output Total 1 Balance 1260 1380 339 Intake: IV 120 Sodium Chloride 0.9% 1, 120 000 ml @ 120 mls/hr IV . Q8H20M [facility] Rx#:[id number] Intake, IV Titration 960 1380 Amount Sodium Chloride 0.9% 1, 960 1380 000 ml @ 120 mls/hr IV . Q8H20M [facility] Rx#:[id number] Oral 300 220 Output: Stool 1 Other: Voiding Method Diaper Diaper Incontinent Incontinent # Voids 3 1 # Bowel Movements 1 - Exam Constitutional General appearance: cooperative, in mild acute distress, uncomprehensive speech but alert - EENT Eyes: anicteric sclerae, EOMI, PERRLA, dentition normal, normal appearance ENT: NA/AT, normal oropharynx - Neck Neck: no lymphadenopathy, normal ROM, no other, no rigidity, no stridor, no thyromegaly - Respiratory Respiratory: bilateral: CTA, negative: diminished, dullness, rales - Cardiovascular Rhythm: regular Heart sounds: normal: S1, S2 Abnormal Heart Sounds: no systolic murmur, no diastolic murmur, no rub, no S3 Gallop, no S4 Gallop, no click, no other - Gastrointestinal General gastrointestinal: normal bowel sounds, soft - Integumentary Integumentary: decreased turgor, normal - Neurologic Neurologic: CNII-XII intact - Musculoskeletal Musculoskeletal: strength equal bilaterally - Psychiatric Psychiatric: appropriate affect - Labs CBC & Chem 7: 08/01/17 06:30 08/01/17 06:30 Labs: Abnormal Lab Results - Last 24 Hours (Table) 08/01/17 08/01/17 Range/Units 06:30 06:30 RBC 3.38 L (4.30-5.90) m/uL Hgb 10.4 L (13.0-17.5) gm/dL Hct 32.1 L (39.0-53.0) % Plt Count 142 L (150-450) k/uL Neutrophils # 8.7 H (1.3-7.7) k/uL Lymphocytes # 0.4 L (1.0-4.8) k/uL Carbon Dioxide 21 L (22-30) mmol/L Creatinine 0.60 L (0.66-1.25) mg/dL Calcium 7.9 L (8.4-10.2) mg/dL Total Protein 5.3 L (6.3-8.2) g/dL Albumin 2.7 L (3.5-5.0) g/dL Microbiology - Last 24 Hours (Table) 07/30/17 Unknown Urine Culture - Final Urine,Catheterized Escherichia coli 07/30/17 18:22 Blood Culture - Preliminary Blood No Growth after 24 hours Assessment and Plan Plan: 1. acute urinary tract infections with acute metabolic encephalopathy. SIRS positive No hydronephrosis. IV Rocephin, discontinue IV Levaquin 2. Cerebral palsy with impulse control disorder with intellectual and communication difficulties, ration requires feeding with assistance when seen, and supervised walking however is independent with walks 3. Seizure disorder on maintenance Tegretol, last seizure August 2015 4. Thyroid disorder, thyroid function test will be obtained related to mental status changes and weakness levothyroxine 75 g daily 5. hyperlipidemia not on any statin 6. Skin disorder with seborrheic keratosis on the betamethasone daily when necessary 7. Impulse control disorder on Lexapro Tegretol 200 3 times a day 8. GI prophylaxis Protonix will change to by mouth Pepcid 9. DVT prophylaxis early ambulation low risk 10. Discharge planning return to [facility] 11. BPH with L UTS, PSA to be obtained, monitor for urinary retention, no current problems for urinary retention 12. Bladder diverticulum 13 vMild hydrocephalus on routine CT, follow up with his neurologist as an outpatient
[2017-08-02] MEDS: LEVOTHYROXINE 75 MCG TAB PO SCH (05:29)
[2017-08-02] MEDS: ESCITALOPRAM 10 MG TAB PO SCH (08:36)
[2017-08-02] MEDS: carBAMazepine 200 MG TAB PO SCH (08:36)
[2017-08-02] MEDS: GABAPENTIN 400 MG CAP PO SCH (08:36)
[2017-08-02] MEDS: ASPIRIN 81 MG PO SCH (08:36)
[2017-08-02] MEDS: POLYETHYLENE GLYCOL 3350 17 GM POWD.PACK PO SCH (08:36)
[2017-08-02] MEDS: PANTOPRAZOLE 40 MG/10 ML VIAL IV SCH (08:36)
[2017-08-02] MEDS: cefTRIAXone IN SWFI 1,000 MG/10 ML SYRINGE IVP SCH (08:37)
[2017-08-02] MEDS: ASCORBIC ACID 500 MG TAB PO SCH (08:38)
[2017-08-02 09:08] VITALS: BP 97/60; PULSE 97; TEMP 99.1
[2017-08-02] MEDS ORDERED: CEPHALEXIN 500 MG CAP PO SCH (12:30)
--- NOTE | 2017-08-02 14:23 | P.DS ---
Providers Date of admission: 07/30/17 20:21 Attending physician: Belinda Macias Primary care physician: Gilberto Turk [facility] Course: This is a 57-year-old gentleman with known cerebral palsy seizure disorder hypothyroidism hyperlipidemia and has significant impairment in intellect and communication skills, admitted to emergency room secondary to mental status changes. Not much is known regarding falls or appetite or seizures and comes in from nursing home,. He was febrile in the ER. He comes from adult foster care facility when he was noted to have less interaction, dark urine. Per guardian speech and mentation are at baseline. According to staff, she was treated with influenza B a week prior to admission In the emergency room, urinalysis was positive for pyuria, bladder ultrasound shows no hydronephrosis stones no masses, bladder demonstrate dependent debris as well as diverticulum CAT scan of the brain shows mild hydrocephalus, chronic ischemic change the comparison for review, chest x-ray shows elevated left hemidiaphragm, no focal airspace disease pleural effusion or pneumothorax, no cardiomegaly, scoliosis noted EKG shows normal sinus rhythm normal EKG. Laboratories WBC of 13.0 CO2 of 28 normal creatinine of 0.7 sodium 139 influenza test negative. T-max in the ER 103. 5 patient assessment for it. Is unable to comprehend his discomfort but does appears anxious. He had 1 episode of vomiting this morning. On clear liquid diet. Continue Rocephin. 08/02 and patient tolerating his meal without any episode of nausea vomiting today. He is alert and answering questions. Urine culture positive for E. coli sensitive to cefazolin patient will continue Keflex for 7 days for a total of 10 days Discharge diagnoses 1. acute urinary tract infections with acute metabolic encephalopathy 2. Cerebral palsy with impulse control disorder with intellectual and communication difficulties 3. Seizure disorder 4. Thyroid disorder 5. hyperlipidemia 6. Skin disorder with seborrheic keratosis 7. Impulse control disorder 8. BPH with L UTS, 9. Bladder diverticulum 10 Mild hydrocephalus CC a copy of discharge to Dr. Turk Disposition to adult foster care Patient Condition at Discharge: Good Plan - Discharge Summary New Discharge Prescriptions: New Cephalexin [Keflex] 500 mg PO BID #14 cap Continue Levothyroxine Sodium [Synthroid] 75 mcg PO DAILY EPINEPHrine (Auto Inject) [Epipen] 0.3 mg IM ONCE PRN PRN Reason: Anaphylaxis Aspirin 81 mg PO DAILY Gabapentin [Neurontin] 400 mg PO TID Polyethylene Glycol 3350 [Miralax] 17 gm PO DAILY Ascorbic Acid [Vitamin C] 500 mg PO DAILY Cholecalciferol [Vitamin D3] 2,000 unit PO DAILY Propylene Glycol/Peg 400/Pf [Systane 0.3-0.4% Eye Drops] 1 dropper BOTH EYES DAILY LORazepam [Ativan] 0.5 mg PO BID PRN PRN Reason: Anxiety Escitalopram [Lexapro] 10 mg PO DAILY Betamethasone Dipropionate [Diprolene AF 0.05% Cream] 1 applic TOPICAL DAILY PRN PRN Reason: Skin Irritation carBAMazepine [TEGretol] 200 mg PO TID Discharge Medication List Ascorbic Acid [Vitamin C] 500 mg PO DAILY 04/25/16 [History] Aspirin 81 mg PO DAILY 04/25/16 [History] Cholecalciferol [Vitamin D3] 2,000 unit PO DAILY 04/25/16 [History] EPINEPHrine (Auto Inject) [Epipen] 0.3 mg IM ONCE PRN 04/25/16 [History] Gabapentin [Neurontin] 400 mg PO TID 04/25/16 [History] Levothyroxine Sodium [Synthroid] 75 mcg PO DAILY 04/25/16 [History] Polyethylene Glycol 3350 [Miralax] 17 gm PO DAILY 04/25/16 [History] Propylene Glycol/Peg 400/Pf [Systane 0.3-0.4% Eye Drops] 1 dropper BOTH EYES DAILY 04/25/16 [History] Betamethasone Dipropionate [Diprolene AF 0.05% Cream] 1 applic TOPICAL DAILY PRN 07/30/17 [History] Escitalopram [Lexapro] 10 mg PO DAILY 07/30/17 [History] LORazepam [Ativan] 0.5 mg PO BID PRN 07/30/17 [History] carBAMazepine [TEGretol] 200 mg PO TID 07/30/17 [History] Cephalexin [Keflex] 500 mg PO BID #14 cap 08/02/17 [Rx] Follow up Appointment(s)/Referral(s): Gilberto Turk MD [Primary Care Provider] - 1-2 days Discharge Disposition: HOME WITH HOME HEALTH SERVICES
--- NOTE | 2017-08-06 10:54 | CDI ---
Last Revision, February 2017 Documentation Clarification Form Date: 08/06/17 From: Liberty Le Phone: If you have a question regarding this query, please contact Karen Treadwell at [phone] between 8am and 5pm. Admit Date: 07/30/2017 8:21:00 PM Patient Name: Chilo Prince Visit Number: [id number] Discharge Date: 08/02/17 ATTENTION: The Clinical Documentation Specialists (CDI) and [facility] Coding Staff appreciate your assistance in clarifying documentation. Please respond to the clarification below the line at the bottom and electronically sign. The CDI & [facility] Coding staff will review the response and follow-up if needed. Please note: Queries are made part of the Legal Health Record. If you have any questions, please contact the author of this message via ITS. Dr. Naseem Oleary Sepsis is documented in the ED note. SIRS is documented in the H&P and in your 08/01 progress note. History/Risk Factors: Patient was admitted for UTI and acute metabolic encephalopathy.Patient has cerebral palsy and seizure disorder. Clinical Indicators: Altered mental status, fever. WBC/Left Shift: 13.0/11.7 Lactic acid: 1.5 Blood cultures: No growth. Vitals signs on admission: T. 103.1, P. 93, R. 20, BP 140/76 Treatment: IV Levofloxacin IV Bolus: Sodium Chloride In your professional opinion, please clarify if these findings signify one of the following conditions, and cause, if known: Condition Sepsis ruled out SIRS, without underlying infectious process Sepsis Severe Sepsis Septic Shock Other, please specify Unable to determine Link or clarify if there is associated (due to/with): Organ failure Shock Sepsis MTDD
== END 2017-08-02 15:37 | disposition home or self-care (01) | DRG 871 ==
LOC: EC 16:50 → 3SUR 20:21 → EEVIPCON 20:21
PROVIDERS: ADMIT Family Medicine; ATTEND Family Medicine
DX: A41.9 Sepsis, unspecified organism (principal); G93.41 Metabolic encephalopathy; N39.0 Urinary tract infection, site not specified; G91.9 Hydrocephalus, unspecified; E03.9 Hypothyroidism, unspecified; E78.5 Hyperlipidemia, unspecified; F63.9 Impulse disorder, unspecified; B96.20 Unspecified Escherichia coli [E. coli] as the cause of diseases classified elsewhere; G40.909 Epilepsy, unspecified, not intractable, without status epilepticus; G80.9 Cerebral palsy, unspecified; R32 Unspecified urinary incontinence; L82.1 Other seborrheic keratosis; M41.9 Scoliosis, unspecified; N32.3 Diverticulum of bladder; N40.0 Benign prostatic hyperplasia without lower urinary tract symptoms; Q66.7 Congenital pes cavus; J98.6 Disorders of diaphragm; F79 Unspecified intellectual disabilities; R62.50 Unspecified lack of expected normal physiological development in childhood; R26.9 Unspecified abnormalities of gait and mobility; Z79.82 Long term (current) use of aspirin; Z79.899 Other long term (current) drug therapy; Z79.890 Hormone replacement therapy; Z91.030 Bee allergy status; Z87.01 Personal history of pneumonia (recurrent)
CPT/HCPCS: 36415; 70450; 71046; 74018; 76770; 80053; 81001; 82550; 82553; 83605; 84153; 84443; 84484; 85025; 85610; 85730; 87040; 87077; 87086; 87186; 87502; 93005; 94760; 99285

== ENCOUNTER → 2020-01-18 | Outpatient (CLI) | payer MEDICARE, OTHER ==
--- NOTE | 2020-01-18 16:06 | CT ---
EXAMINATION TYPE: CT foot LT wo con DATE OF EXAM: 01/18/2020 COMPARISON: None. HISTORY: left foot pain, nondisplaced fracture first metatarsal bone, nondisplaced fracture third met atarsal bone, rule out Lisfranc injury. CT DLP: 235.8 mGycm Automated exposure control for dose reduction was used. FINDINGS: Corresponding to history of areas oblique minimally displaced intra-articular fracture through the pl melissa base of the first metatarsal seen best near sagittal image 27. Corresponding to patient history there is acute comminuted minimally displaced intra-articular fractu re through the base of the third metatarsal seen best on axial image 69. Lisfranc joints fairly well maintained, slightly suboptimal study due to oblique positioning. Articul ation of base of first metatarsal with medial cuneiform is maintained. Third metatarsal base articula tion with lateral cuneiform fairly well maintained on sagittal image 15 for reference. No suspicious separation noted. Hindfoot structures are preserved. Normal sinus tarsi fat is seen. Distal Achilles tendon intact. Flexion in the toes is identified. No additional acute fracture or dislocation is present distally. H allux valgus positioning first metatarsophalangeal joint is noted. Mild to moderate diffuse subcutaneous edema is seen. IMPRESSION: Confirmation of acute intra-articular fractures more oblique type plantar aspect base of first metatarsal and comminuted type base of third metatarsal without significant displacement or Lis franc joint disruption.
== END | disposition home or self-care (01) ==
LOC: RADCTMAIN 15:04
PROVIDERS: ATTEND Orthopaedic Surgery Hand Surgery
DX: S92.312A Displaced fracture of first metatarsal bone, left foot, initial encounter for closed fracture (principal); S92.332A Displaced fracture of third metatarsal bone, left foot, initial encounter for closed fracture

== ENCOUNTER 2023-08-07 21:43 | Emergency (ER) | payer MEDICARE, OTHER ==
[2023-08-07 22:28] VITALS: RESP 18
--- NOTE | 2023-08-07 23:27 | ED ---
General Adult HPI - General Chief complaint: Nausea/Vomiting/Diarrhea Stated complaint: vomitting, no appetite Time Seen by Provider: 08/07/23 23:08 Source: Caregiver Mode of arrival: ambulatory Limitations: no limitations - History of Present Illness Initial comments: Dictation was produced using Scandid dictation software. please excuse any grammatical, word or spelling errors. Chief Complaint: 63-year-old male with developmental disability presents to the ER from residential for episode of choking History of Present Illness: Patient 63-year-old male he is brought in by caregiver from the residential. Patient developmentally delayed. Patient at baseline requires significant assistance with activities of daily living. Patient is nonverbal. Apparently he was eating a donut when he had a choking episode. He had some episodes of vomiting. Episode occurred just prior to arrival. Patient otherwise is now behaving normally per caregiver The ROS documented in this emergency department record has been reviewed and confirmed by me. Those systems with pertinent positive or negative responses have been documented in the HPI. All other systems are other negative and/or noncontributory. - Related Data Home Medications Medication Instructions Recorded Confirmed Ascorbic Acid [Vitamin C] 500 mg PO DAILY 04/25/16 07/30/17 Aspirin 81 mg PO DAILY 04/25/16 07/30/17 Cholecalciferol [Vitamin D3 (25 2,000 unit PO DAILY 04/25/16 07/30/17 Mcg = 1000 Iu)] EPINEPHrine (Auto Inject) [Epipen] 0.3 mg IM ONCE PRN 04/25/16 07/30/17 Gabapentin [Neurontin] 400 mg PO TID 04/25/16 07/30/17 Levothyroxine Sodium [Synthroid] 75 mcg PO DAILY 04/25/16 07/30/17 Propylene Glycol/Peg 400/Pf 1 dropper BOTH EYES DAILY 04/25/16 07/30/17 [Systane 0.3-0.4% Eye Drop] polyethylene glycoL 3350 [Miralax] 17 gm PO DAILY 04/25/16 07/30/17 Betamethasone Dipropionate 1 applic TOPICAL DAILY PRN 07/30/17 07/30/17 [Betamethasone Dipropionate 0.05% Cream] Escitalopram [Lexapro] 10 mg PO DAILY 07/30/17 07/30/17 LORazepam [Ativan] 0.5 mg PO BID PRN 07/30/17 07/30/17 carBAMazepine [TEGretol] 200 mg PO TID 07/30/17 07/30/17 Previous Rx's Medication Instructions Recorded Cephalexin [Keflex] 500 mg PO BID #14 cap 08/02/17 Allergies Allergy/AdvReac Type Severity Reaction Status Date / Time bee pollen Allergy Anaphylaxis Verified 08/07/23 22:04 Review of Systems ROS Statement: Those systems with pertinent positive or pertinent negative responses have been documented in the HPI. ROS Other: All systems not noted in ROS Statement are negative. Past Medical History Past Medical History: Hyperlipidemia, Musculoskeletal Disorder, Pneumonia, Seizure Disorder, Skin Disorder, Thyroid Disorder Additional Past Medical History / Comment(s): developmental delays, cerebral palsy, impulse control disorder, Dermatitis, varus deformity, Last seizure was September 15, 2015, photosensitivity from medications, Dental work under sedation, seborrheic ketosis, gait disturbance, Pes Cavus, [place], Scoliosis, Peridontitis. History of Any Multi-Drug Resistant Organisms: None Reported Past Surgical History: Bowel Resection Additional Past Surgical History / Comment(s): Colonoscopy 2013, 2016. Laparoscopy of colon 2013, 2016 Past Anesthesia/Blood Transfusion Reactions: No Reported Reaction Past Psychological History: No Psychological Hx Reported Smoking Status: Unknown if ever smoked Past Alcohol Use History: None Reported Past Drug Use History: None Reported - Past Family History Father Family Medical History: No Reported History Additional Family Medical History / Comment(s): No signigicant history reported by residential staff member General Exam - General Exam Comments Initial Comments: General: Well-appearing, nontoxic, no acute distress. Head: Normocephalic, atraumatic Eyes: PERRLA, EOMI ENT: Airway patent Chest: Nonlabored breathing Skin: No visual rash, normal skin tone Neuro: Alert and oriented 3 Musculoskeletal: No gross abnormalities Limitations: no limitations Course Vital Signs 08/07/23 08/08/23 21:58 00:10 Temperature 98.3 F 98 F Pulse Rate 86 85 Respiratory 18 18 Rate Blood Pressure 121/77 125/76 O2 Sat by Pulse 99 98 Oximetry Medical Decision Making - Medical Decision Making Was pt. sent in by a medical professional or institution (, PA, PETROLEUM ENGINEER, urgent care, hospital, or fdc...) When possible be specific @ -No Did you speak to anyone other than the patient for history (EMS, parent, family, police, friend...)? What history was obtained from this source @ -Spoke with the residential meat grader Did you review nursing and triage notes (agree or disagree)? Why? @ -I reviewed and agree with nursing and triage notes Were old charts reviewed (outside hosp., previous admission, EMS record, old EKG, old radiological studies, urgent care reports/EKG's, fdc records)? Report findings @ -No old charts were reviewed Differential Diagnosis (chest pain, altered mental status, abdominal pain women, abdominal pain men, vaginal bleeding, musculoskeletal, weakness, fever, dyspnea, syncope, headache, dizziness, GI bleed, back pain, seizure, CVA, palpatations, mental health)? @ -Not applicable EKG interpreted by me (3pts min.). @ -My EKG interpretation: Ventricular rate 71, sinus rhythm,. 125, cures 107, QTc 416. No AK prolongation, no QTC prolongation, no ST or T-wave changes noted. Overall, this EKG is unremarkable X-rays interpreted by me (1pt min.). @ -Two-view chest x-ray shows no acute processes. CT interpreted by me (1pt min.). @ -None done U/S interpreted by me (1pt. min.). @ -None done What testing was considered but not performed or refused? (CT, X-rays, U/S, labs)? Why? @ -None What meds were considered but not given or refused? Why? @ -None Did you discuss the management of the patient with other professionals (professionals i.e. , PA, PETROLEUM ENGINEER, lab, RT, psych nurse, outreach and education social worker, paid search marketing strategist, teacher, hospital security officer, counseling case manager)? Give summary @ -No Was smoking cessation discussed for >3mins.? @ -No Was critical care preformed (if so, how long)? @ -No Were there social determinants of health that impacted care today? How? (Homelessness, low income, unemployed, alcoholism, drug addiction, transp ortation, low edu. Level, literacy, decrease access to med. care, skilled nursing, rehab)? @ -No Was there de-escalation of care discussed even if they declined (Discuss DNR or withdrawal of care, Hospice)? DNR status @ -No What co-morbidities impacted this encounter? (DM, HTN, Smoking, COPD, CAD, Cancer, CVA, ARF, Chemo, Hep., AIDS, mental health diagnosis, sleep apnea, morbid obesity)? @ -None Was patient admitted / discharged? Hospital course, mention meds given and route, prescriptions, significant lab abnormalities, going to OR and other pertinent info. @ -63-year-old male had a brief episode of choking while eating. Vital signs stable. Patient well-appearing at the bedside. EKG is unremarkable. Chest x- ray is nonacute. Patient tolerating oral intake at the bedside. Observed in the emergency department for 2 hours and 42 minutes. Reevaluated bedside 12:27 AM found to be in stable condition. Patient cleared for discharge. Undiagnosed new problem with uncertain prognosis? @ -No Drug Therapy requiring intensive monitoring for toxicity (Heparin, Nitro, Insulin, Cardizem)? @ -No Were any procedures done? @ -No Diagnosis/symptom? Acute, or Chronic, or Acute on Chronic? Uncomplicated (without systemic symptoms) or Complicated (systemic symptoms)? @ -Choking episode Side effects of treatment? @ -No Exacerbation, Progression, or Severe Exacerbation? @ -No Poses a threat to life or bodily function? How? (Chest pain, [place], PR, pneumonia, PE, COPD, DKA, ARF, appy, cholecystitis, CVA, Diverticulitis, Homicidal, Suicidal, threat to staff... and all critical care pts) @ -No Disposition Clinical Impression: Choking episode Disposition: HOME SELF-CARE Condition: Good Instructions (If sedation given, give patient instructions): Dysphagia (ED) Is patient prescribed a controlled substance at d/c from ED?: No Referrals: None,Stated [REFERRING] - 1-2 days Time of Disposition: 00:27
[2023-08-08 01:15] VITALS: BP 125/76; PULSE 85; TEMP 98
--- NOTE | 2023-08-08 01:24 | XR ---
EXAMINATION TYPE: XR chest 2V DATE OF EXAM: 08/07/2023 11:38 PM CLINICAL INDICATION:Male, 63 years old with history of choking episode; [facility] COMPARISON: Chest radiographs from 07/30/2017 TECHNIQUE: XR chest 2V Frontal and lateral views of the chest. FINDINGS: Lungs/Pleura: There is no evidence of pleural effusion, focal consolidation, or pneumothorax. Pulmonary vascularity: Unremarkable. Heart/mediastinum: Cardiomediastinal silhouette is unremarkable. Musculoskeletal: No acute osseous pathology. IMPRESSION: No acute cardiopulmonary disease/process.
== END 2023-08-08 00:43 | disposition home or self-care (01) ==
LOC: EC 21:43
DX: R09.89 Other specified symptoms and signs involving the circulatory and respiratory systems (principal); Z91.030 Bee allergy status
CPT/HCPCS: 71046; 93005; 99284